=== PATIENT | female | born 1995 | race Asian ===

== ENCOUNTER 2018-08-24 13:05 | Emergency (ER) | payer OTHER ==
[~2018-08-24] VITALS: Ht 157.5 cm; Wt 54.0 kg
--- NOTE | 2018-08-24 13:25 | PHYS DOC ---
Adult General Chief Complaint Chief Complaint: DIZZY/LIGHT HEADED HPI HPI Patient is a 22 year old female 1 para 0 currently 4 weeks who presents to the ED today complaining of an episode of dizziness with vomiting that occurred today. Patient states the dizziness occurred while changing positions from sitting to standing. Patient denies any headache. Denies any abdominal pain. Denies any fever. Denies any vaginal bleeding. She is requesting we do not do an ultrasound in the ED because it's very expensive. Review of Systems Review of Systems Constitutional: Denies fever or chills [] Eyes: Denies change in visual acuity, redness, or eye pain [] HENT: Denies nasal congestion or sore throat [] Respiratory: Denies cough or shortness of breath [] Cardiovascular: No additional information not addressed in HPI [] GI: Reports nausea and vomiting. Denies abdominal pain, denies any diarrhea. Musculoskeletal: Denies back pain or joint pain [] Integument: Denies rash or skin lesions [] Neurologic: Reports dizziness. Denies headache, focal weakness or sensory changes [] [] All other systems were reviewed and found to be within normal limits, except as documented in this note. Current Medications Current Medications Current Medications Medications (Trade) Dose Ordered Sig/Pattie Start Time Stop Time Status Last Admin Dose Admin Ondansetron HCl (Zofran) 4 mg 1X ONCE 08/24/18 13:45 08/24/18 13:46 DC 08/24/18 13:45 4 MG Sodium Chloride 1,000 ml @ 1,000 mls/hr 1X ONCE 08/24/18 13:45 08/24/18 14:44 08/24/18 13:45 1,000 MLS/HR Allergies Allergies Allergies Coded Allergies Type Severity Reaction Last Updated Verified No Known Drug Allergies 08/24/18 No Physical Exam Physical Exam Constitutional: Well developed, well nourished, no acute distress, non-toxic appearance. [] HENT: Normocephalic, atraumatic, bilateral external ears normal, oropharynx moist, no oral exudates, nose normal. [] Eyes: PERRLA, EOMI, conjunctiva normal, no discharge. [] Neck: Normal range of motion, no tenderness, supple, no stridor. [] Cardiovascular:Heart rate regular rhythm, no murmur [] Lungs & Thorax: Bilateral breath sounds clear to auscultation [] Abdomen: Bowel sounds normal, soft, no tenderness, no masses, no pulsatile masses. [] Skin: Warm, dry, no erythema, no rash. [] Back: No tenderness, no CVA tenderness. [] Extremities: No tenderness, no cyanosis, no clubbing, ROM intact, no edema. [] Neurologic: Alert and oriented X 3, normal motor function, normal sensory function, no focal deficits noted. Cranial nerves II through XII intact Psychologic: Affect normal, judgement normal, mood normal. [] Current Patient Data Vital Signs Vital Signs Date Time Temp Pulse Resp B/P (MAP) Pulse Ox O2 Delivery O2 Flow Rate FiO2 08/24/18 13:15 98.0 79 16 113/67 (82) 100 Room Air 98.0 Lab Values Laboratory Tests Test 08/24/18 13:12 08/24/18 13:19 08/24/18 13:40 Urine Collection Type Void Urine Color Yellow Urine Clarity Clear Urine pH 6.5 Urine Specific [place] 1.020 Urine Protein Negative mg/dL (NEG-TRACE) Urine Glucose (UA) Negative mg/dL (NEG) Urine Ketones (Stick) 40 mg/dL (NEG) Urine Blood Negative (NEG) Urine Nitrite Negative (NEG) Urine Bilirubin Negative (NEG) Urine Urobilinogen Dipstick 0.2 mg/dL (0.2 mg/dL) Urine Leukocyte Esterase Large (NEG) Urine RBC 0 /HPF (0-2) Urine WBC 20-40 /HPF (0-4) Urine Squamous Epithelial Cells Many /LPF Urine Bacteria Few /HPF (0-FEW) Urine Mucus Mod /LPF POC Urine HCG, Qualitative Hcg positive (Negative) White Blood Count 9.8 x10^3/uL (4.0-11.0) Red Blood Count 4.06 x10^6/uL (3.50-5.40) Hemoglobin 8.2 g/dL (12.0-15.5) L Hematocrit 26.3 % (36.0-47.0) L Mean Corpuscular Volume 65 fL (79-100) L Mean Corpuscular Hemoglobin 20 pg (25-35) L Mean Corpuscular Hemoglobin Concent 31 g/dL (31-37) Red Cell Distribution Width 18.5 % (11.5-14.5) H Platelet Count 287 x10^3/uL (140-400) Neutrophils (%) (Auto) 80 % (31-73) H Lymphocytes (%) (Auto) 15 % (24-48) L Monocytes (%) (Auto) 4 % (0-9) Eosinophils (%) (Auto) 1 % (0-3) Basophils (%) (Auto) 0 % (0-3) Neutrophils # (Auto) 7.9 x10^3uL (1.8-7.7) H Lymphocytes # (Auto) 1.4 x10^3/uL (1.0-4.8) Monocytes # (Auto) 0.4 x10^3/uL (0.0-1.1) Eosinophils # (Auto) 0.1 x10^3/uL (0.0-0.7) Basophils # (Auto) 0.0 x10^3/uL (0.0-0.2) Platelet Estimate Adequate (ADEQUATE) Hypochromasia Mod Anisocytosis Mod Microcytosis Marked Target Cells Occ Schistocytes Occ Sodium Level 135 mmol/L (136-145) L Potassium Level 3.3 mmol/L (3.5-5.1) L Chloride Level 102 mmol/L (98-107) Carbon Dioxide Level 21 mmol/L (21-32) Anion Gap 12 (6-14) Blood Urea Nitrogen 6 mg/dL (7-20) L Creatinine 0.4 mg/dL (0.6-1.0) L Estimated GFR (Cockcroft-Gault) 201.5 BUN/Creatinine Ratio 15 (6-20) Glucose Level 78 mg/dL (70-99) Calcium Level 8.8 mg/dL (8.5-10.1) Total Bilirubin 0.4 mg/dL (0.2-1.0) Aspartate Amino Transferase (AST) 12 U/L (15-37) L Alanine Aminotransferase (ALT) 10 U/L (14-59) L Alkaline Phosphatase 47 U/L (46-116) Total Protein 7.9 g/dL (6.4-8.2) Albumin 3.5 g/dL (3.4-5.0) Albumin/Globulin Ratio 0.8 (1.0-1.7) L Laboratory Tests 08/24/18 13:40 Laboratory Tests 08/24/18 13:40 EKG EKG [] Radiology/Procedures Radiology/Procedures [] Course & Med Decision Making Course & Med Decision Making Pertinent Labs and Imaging studies reviewed. (See chart for details) This is a 22-year-old female patient presenting to the ED today complaining of dizziness and that episode of vomiting. She is currently 4 months . She is a 1 para 0. She is refusing ultrasound on her baby, she states it's very expensive. CBC with a normal WBC, hemoglobin 8.2, hematocrit 26.3, patient was advised to increase dietary iron intake, vitamins recommended. Urine analysis is noted for large amount of leukocytes, patient was discharged on cephalexin. Vitals are stable, orthostatics are negative. CMP with potassium of 3.3, patient was given oral potassium replacement. She was also given a liter of fluid and Zofran. She states she is feeling better. She was discharged to home. Encouraged to push fluids and change positions slowly. Follow-up with AUTHOR AGENT next week. Dragon Disclaimer Dragon Disclaimer This electronic medical record was generated, in whole or in part, using a voice recognition dictation system. Departure Departure Impression: Primary Impression: Additional Impressions: Dizziness Urinary tract infection during Anemia Disposition: HOME, SELF-CARE Condition: STABLE Referrals: CHRISTINE JORDAN Jr, MD follow up next week Patient Instructions: ABCs of , Anemia, FAQs, - Urinary Tract Infection Additional Instructions: You were evaluated for dizziness with vomiting. Your urine analysis was noted for infection, we put you on cephalexin, ensure you complete it. Your iron levels are low, please start taking vitamins, increase your dietary for iron intake through foods like red meats. Try and push fluids, change positions slowly, follow-up with your AUTHOR AGENT next week, come back to the ED at any point symptoms worsen. Scripts Ondansetron (ONDANSETRON ODT) 4 Mg Tab.rapdis 1 TAB PO PRN Q6-8HRS, #16 TAB Prov: MUTUNGA,MAYUR ENGINE LATHE SET UP OPERATOR TOOL 08/24/18 Cephalexin (CEPHALEXIN) 500 Mg Tablet 1 TAB PO BID, #14 TAB Prov: MUTUNGA,MAYUR ENGINE LATHE SET UP OPERATOR TOOL 08/24/18 Problem Qualifiers Primary Impression: Weeks of gestation: 16 weeks Qualified Codes: Z3A.16 - 16 weeks gestation of Additional Impressions: Urinary tract infection during Trimester: second trimester Qualified Codes: O23.42 - Unspecified infection of urinary tract in , second trimester Anemia Anemia type: unspecified type Qualified Codes: D64.9 - Anemia, unspecified MAYUR COVARRUBIAS ENGINE LATHE SET UP OPERATOR TOOL Aug 24, 2018 13:25
[2018-08-24] MEDS ORDERED: ONDANSETRON PF 4 MG/2 ML VIAL. IV ONE (13:45)
[2018-08-24] MEDS ORDERED: IV NORMAL SALINE 1000ML BAG 1,000 ML IV ONE (13:45)
[2018-08-24 13:49] LABS: BASO % 0 % (0-3); EOS # 0.1 x10^3/uL (0.0-0.7); EOS % 1 % (0-3); HEMATOCRIT 26.3 % (36.0-47.0); HEMOGLOBIN 8.2 g/dL (12.0-15.5); LYMPH # 1.4 x10^3/uL (1.0-4.8); LYMPH % 15 % (24-48); MEAN CORPUSCULAR HEMOGLOBIN 20 pg (25-35); MEAN CORPUSCULAR HGB CONC 31 g/dL (31-37); MEAN CORPUSCULAR VOLUME 65 fL (79-100); MONO # 0.4 x10^3/uL (0.0-1.1); MONO % 4 % (0-9); NEUT # 7.9 x10^3uL (1.8-7.7); NEUT % 80 % (31-73); PLATELET COUNT 287 x10^3/uL (140-400); RED BLOOD COUNT 4.06 x10^6/uL (3.50-5.40); RED CELL DISTRIBUTION WIDTH 18.5 % (11.5-14.5); WHITE BLOOD COUNT 9.8 x10^3/uL (4.0-11.0)
[2018-08-24 13:51] LABS: BILIRUBIN,URINE NEGATIVE (NEG); CLARITY,URINE CLEAR; COLOR,URINE YELLOW; NITRITE,URINE NEGATIVE (NEG); PH,URINE 6.5; PROTEIN,URINE NEGATIVE (NEG-TRACE); UROBILINOGEN,URINE 0.2 mg/dL (0.2 mg/dL)
[2018-08-24 13:56] LABS: CALCIUM 8.8 mg/dL (8.5-10.1); CREATININE 0.4 mg/dL (0.6-1.0); GFR 201.5; POTASSIUM 3.3 mmol/L (3.5-5.1)
[2018-08-24 14:02] LABS: ALBUMIN 3.5 g/dL (3.4-5.0); ALBUMIN/GLOBULIN RATIO 0.8 (1.0-1.7); TOTAL BILIRUBIN 0.4 mg/dL (0.2-1.0); TOTAL PROTEIN 7.9 g/dL (6.4-8.2)
[2018-08-24 14:10] LABS: BACTERIA,URINE FEW /HPF (0-FEW); RBC,URINE 0 /HPF (0-2); SQUAMOUS EPITHELIAL CELL,UR MANY /LPF; WBC,URINE 20-40 /HPF (0-4)
[2018-08-24 14:28] LABS: PLT ESTIMATE ADEQUATE (ADEQUATE)
[2018-08-24 14:29] LABS: ANISOCYTOSIS MOD; HYPOCHROMIA MOD; MICROCYTOSIS MARKED; TARGET CELLS OCC
[2018-08-24 14:30] LABS: SCHISTOCYTES OCC
[2018-08-24] MEDS ORDERED: ONDA4TAB12 PO (14:51)
[2018-08-24] MEDS ORDERED: CEPH500T PO (14:51)
[2018-08-24 15:00] VITALS: BP 93/53
[2018-08-24] MEDS ORDERED: POTASSIUM CHLORIDE 20 MEQ TABLET.ER. PO ONE (15:00)
== END 2018-08-24 15:00 | disposition home or self-care (01) ==
LOC: ER 13:05
DX: O99.012 Anemia complicating pregnancy, second trimester (principal); O23.32 Infections of other parts of urinary tract in pregnancy, second trimester; O21.8 Other vomiting complicating pregnancy; R42 Dizziness and giddiness; Z3A.16 16 weeks gestation of pregnancy
CPT/HCPCS: 36415; 80053; 81001; 81025; 85025; 87086; 96361; 96374; 99284; J2405; J7030

== ENCOUNTER 2018-09-06 16:46 | Emergency (ER) | payer OTHER ==
[~2018-09-06] VITALS: Ht 157.5 cm; Wt 55.8 kg
[~2018-09-06 16:46] MED LIST: CEPH500T PO; ONDA4TAB12 PO
[2018-09-06 17:10] LABS: BILIRUBIN,URINE NEGATIVE (NEG); CLARITY,URINE CLEAR; COLOR,URINE YELLOW; NITRITE,URINE NEGATIVE (NEG); PH,URINE 7.5; PROTEIN,URINE NEGATIVE (NEG-TRACE); UROBILINOGEN,URINE 0.2 mg/dL (0.2 mg/dL)
[2018-09-06 17:16] LABS: BACTERIA,URINE FEW /HPF (0-FEW); RBC,URINE RARE /HPF (0-2); SQUAMOUS EPITHELIAL CELL,UR MOD /LPF
[2018-09-06] MEDS ORDERED: cefTRIAXone IV Push 1 GM VIAL. IVP ONE (18:15)
[2018-09-06] MEDS ORDERED: IV NORMAL SALINE 1000ML BAG 1,000 ML IV ONE (18:30)
[2018-09-06 18:32] LABS: BASO % 0 % (0-3); EOS # 0.1 x10^3/uL (0.0-0.7); EOS % 1 % (0-3); HEMATOCRIT 23.5 % (36.0-47.0); HEMOGLOBIN 7.7 g/dL (12.0-15.5); LYMPH # 1.5 x10^3/uL (1.0-4.8); LYMPH % 16 % (24-48); MEAN CORPUSCULAR HEMOGLOBIN 22 pg (25-35); MEAN CORPUSCULAR HGB CONC 33 g/dL (31-37); MEAN CORPUSCULAR VOLUME 66 fL (79-100); MONO # 0.5 x10^3/uL (0.0-1.1); MONO % 5 % (0-9); NEUT # 6.9 x10^3uL (1.8-7.7); NEUT % 77 % (31-73); PLATELET COUNT 241 x10^3/uL (140-400); RED BLOOD COUNT 3.55 x10^6/uL (3.50-5.40); RED CELL DISTRIBUTION WIDTH 20.7 % (11.5-14.5)
[2018-09-06 18:39] LABS: CALCIUM 8.6 mg/dL (8.5-10.1); CREATININE 0.4 mg/dL (0.6-1.0); GFR 201.5; POTASSIUM 3.2 mmol/L (3.5-5.1)
[2018-09-06 18:44] LABS: ALBUMIN/GLOBULIN RATIO 0.8 (1.0-1.7); TOTAL BILIRUBIN 0.2 mg/dL (0.2-1.0); TOTAL PROTEIN 6.9 g/dL (6.4-8.2)
[2018-09-06 18:56] LABS: ANISOCYTOSIS MOD; HYPOCHROMIA MOD; MICROCYTOSIS MARKED; PLT ESTIMATE ADEQUATE (ADEQUATE); POLYCHROMASIA SLIGHT
--- NOTE | 2018-09-06 19:39 | RAD ---
Obstetrical ultrasound HISTORY: Abdominal and back pain. Flank pain. FINDINGS: Study interpreted without the benefit of real-time observation. A single intrauterine fetus is identified. Placenta is posterior and fundal. presentation is vertex. Amniotic fluid index is 9.8. movement is identified. Cardiac activity is documented with a heart rate of 132 bpm. Biparietal diameter, head circumference, abdominal circumference and femur length are measured, with an estimated sonographic age of 18 weeks 2 days and estimated due date of 02/05/2019. Estimated weight 0 lbs. 8 oz. +/- 1 ounce. Cervical length is 3.1 cm. IMPRESSION: 1. Single viable intrauterine with estimated age of 18 weeks 2 days. 2. The amniotic fluid index is within normal limits, although at the lower limits of normal. 3. Cervical length measures slightly short, 3.1 cm. Electronically signed by: Reno Sims MD (09/06/2018 7:36 PM) [facility]
[2018-09-06] MEDS ORDERED: CEPH-264 PO (19:46)
--- NOTE | 2018-09-06 19:47 | PHYS DOC ---
Past Medical History Past Medical History: No Pertinent History (BEE MORRISSEY) Past Surgical History: Appendectomy (BEE MORRISSEY) Alcohol Use: None Drug Use: None (BEE MORRISSEY) Adult General Chief Complaint Chief Complaint: FLANK PAIN HPI HPI Patient is a 22 year old F who speaks Bermese and her family in room is translating. They were offered the freelance translator phone and declined. Pt is here for flank pain and low abd cramps in . She was actually seen by her OB, Dr. Washington, yesterday. She states 2 d ago she had some vaginal spotting so was seen yesterday and underwent a pelvic exam. She had more cramping and some pain in her B sides today so came in to ER for evaluation. She denies N/V/D. This is pt's first . (BEE MORRISSEY) Review of Systems Review of Systems Constitutional: Denies fever or chills [] Respiratory: Denies cough or shortness of breath [] Cardiovascular: Denies chest pain GI: Denies nausea, vomiting, bloody stools or diarrhea. Reports abd cramping. : Denies dysuria or hematuria. Reports vaginal bleeding 2 d ago but none since . Musculoskeletal: Denies back pain or joint pain [] Integument: Denies rash or skin lesions [] Neurologic: Denies headache, focal weakness or sensory changes [] All other systems were reviewed and found to be within normal limits, except as documented in this note. (BEE MORRISSEY) Current Medications Current Medications Current Medications Medications (Trade) Dose Ordered Sig/Pattie Start Time Stop Time Status Last Admin Dose Admin Ceftriaxone Sodium (Rocephin) 1 gm 1X ONCE 09/06/18 18:15 09/06/18 18:16 DC 09/06/18 18:23 1 GM Sodium Chloride 1,000 ml @ 1,000 mls/hr 1X ONCE 09/06/18 18:30 09/06/18 19:29 DC 09/06/18 18:24 1,000 MLS/HR (LISBETH JOHNSON MD) Allergies Allergies Allergies Coded Allergies Type Severity Reaction Last Updated Verified No Known Drug Allergies 08/24/18 No (LISBETH JOHNSON MD) Physical Exam Physical Exam Constitutional: Well developed, well nourished, no acute distress, non-toxic appearance. [] Neck: Normal range of motion, no tenderness, supple, no stridor. [] Cardiovascular:Heart rate regular rhythm, no murmur [] Lungs & Thorax: Bilateral breath sounds clear to auscultation [] Abdomen: Bowel sounds normal, soft, no tenderness on palpation. Skin: Warm, dry, no erythema, no rash. [] Back: No tenderness, no CVA tenderness. [] Extremities: No tenderness, no cyanosis, no clubbing, ROM intact, no edema. [] Neurologic: Alert and oriented X 3, normal motor function, normal sensory function, no focal deficits noted. [] Psychologic: Affect normal, judgement normal, mood normal. [] : pelvic exam declined due to pt having one at OB office yesterday (BEE MORRISSEY) Current Patient Data Vital Signs Vital Signs Date Time Temp Pulse Resp B/P (MAP) Pulse Ox O2 Delivery O2 Flow Rate FiO2 09/06/18 19:52 79 15 102/71 (81) 97 Room Air 09/06/18 16:53 99.2 99.2 (LISBETH JOHNSON MD) Lab Values Laboratory Tests Test 09/06/18 16:55 09/06/18 18:05 Urine Collection Type Void Urine Color Yellow Urine Clarity Clear Urine pH 7.5 Urine Specific [place] <=1.005 Urine Protein Negative mg/dL (NEG-TRACE) Urine Glucose (UA) Negative mg/dL (NEG) Urine Ketones (Stick) Negative mg/dL (NEG) Urine Blood Small (NEG) Urine Nitrite Negative (NEG) Urine Bilirubin Negative (NEG) Urine Urobilinogen Dipstick 0.2 mg/dL (0.2 mg/dL) Urine Leukocyte Esterase Moderate (NEG) Urine RBC Rare /HPF (0-2) Urine WBC 1-4 /HPF (0-4) Urine Squamous Epithelial Cells Mod /LPF Urine Bacteria Few /HPF (0-FEW) White Blood Count 9.0 x10^3/uL (4.0-11.0) Red Blood Count 3.55 x10^6/uL (3.50-5.40) Hemoglobin 7.7 g/dL (12.0-15.5) L Hematocrit 23.5 % (36.0-47.0) L Mean Corpuscular Volume 66 fL (79-100) L Mean Corpuscular Hemoglobin 22 pg (25-35) L Mean Corpuscular Hemoglobin Concent 33 g/dL (31-37) Red Cell Distribution Width 20.7 % (11.5-14.5) H Platelet Count 241 x10^3/uL (140-400) Neutrophils (%) (Auto) 77 % (31-73) H Lymphocytes (%) (Auto) 16 % (24-48) L Monocytes (%) (Auto) 5 % (0-9) Eosinophils (%) (Auto) 1 % (0-3) Basophils (%) (Auto) 0 % (0-3) Neutrophils # (Auto) 6.9 x10^3uL (1.8-7.7) Lymphocytes # (Auto) 1.5 x10^3/uL (1.0-4.8) Monocytes # (Auto) 0.5 x10^3/uL (0.0-1.1) Eosinophils # (Auto) 0.1 x10^3/uL (0.0-0.7) Basophils # (Auto) 0.0 x10^3/uL (0.0-0.2) Platelet Estimate Adequate (ADEQUATE) Polychromasia Slight Hypochromasia Mod Anisocytosis Mod Microcytosis Marked Maternal Serum HCG Beta Subunit 6468 mIU/mL (0-5) H Sodium Level 141 mmol/L (136-145) Potassium Level 3.2 mmol/L (3.5-5.1) L Chloride Level 106 mmol/L (98-107) Carbon Dioxide Level 25 mmol/L (21-32) Anion Gap 10 (6-14) Blood Urea Nitrogen 4 mg/dL (7-20) L Creatinine 0.4 mg/dL (0.6-1.0) L Estimated GFR (Cockcroft-Gault) 201.5 BUN/Creatinine Ratio 10 (6-20) Glucose Level 93 mg/dL (70-99) Calcium Level 8.6 mg/dL (8.5-10.1) Total Bilirubin 0.2 mg/dL (0.2-1.0) Aspartate Amino Transferase (AST) 14 U/L (15-37) L Alanine Aminotransferase (ALT) 13 U/L (14-59) L Alkaline Phosphatase 49 U/L (46-116) Total Protein 6.9 g/dL (6.4-8.2) Albumin 3.0 g/dL (3.4-5.0) L Albumin/Globulin Ratio 0.8 (1.0-1.7) L Laboratory Tests 09/06/18 18:05 Laboratory Tests 09/06/18 18:05 Microbiology 09/06/18 Urine Culture - Preliminary, Resulted 09/06/18 Urine Culture Result 1 (OLIVIA) - Preliminary, Resulted (LISBETH JOHNSON MD) EKG EKG [] (BEE MORRISSEY) Radiology/Procedures Radiology/Procedures ultrasound performed and reassuring (BEE MORRISSEY) Course & Med Decision Making Course & Med Decision Making Pertinent Labs and Imaging studies reviewed. (See chart for details) Pt significantly anemic. In review pt had Hgb of 8.2 on prior labs. I discussed this with pt and she states she does have hx of iron deficiency anemia and is supposed to be taking iron supplements but ran out. I encouraged her to restart these and discussed that she needs close lab recheck with Dr. Washington. Pt has UTI and was given Rocephin and will be started on Keflex. Pt stable at time of discharge. She is hungry and appears in no distress. (BEE MORRISSEY) Course & Med Decision Making Staff Physician Addendum: I was working in the ER during the course of this patient's visit. I was available for consultation as needed, but I was not directly involved in the care of this patient. (LISBETH JOHNSON MD) Dragon Disclaimer Dragon Disclaimer This electronic medical record was generated, in whole or in part, using a voice recognition dictation system. (BEE MORRISSEY) Departure Departure Impression: Primary Impression: Anemia Additional Impression: Urinary tract infection during Disposition: HOME, SELF-CARE Condition: IMPROVED Referrals: NO PCP (PCP) DREW WASHINGTON MD Patient Instructions: Anemia, Nonspecific-Brief, - Urinary Tract Infection Additional Instructions: It is not uncommon to get urinary tracts during . Push fluids, rest and follow up closely with your staff development educator. You are anemic, which appears around baseline from your prior visit, but could certainly be contributing to you feeling tired and dizzy. Please continue to take iron supplements and/or vitamins. Scripts Cephalexin (KEFLEX) 500 Mg Capsule 1 CAP PO TID, #21 CAP Prov: BEE MORRISSEY 09/06/18 Problem Qualifiers BEE MORRISSEY September 06, 2018 19:47 LISBETH JOHNSON MD September 09, 2018 04:58
[2018-09-06 19:52] VITALS: BP 102/71
== END 2018-09-06 20:18 | disposition home or self-care (01) ==
LOC: ER 16:46
DX: O23.42 Unspecified infection of urinary tract in pregnancy, second trimester (principal); O99.012 Anemia complicating pregnancy, second trimester; D64.9 Anemia, unspecified; Z90.89 Acquired absence of other organs; Z3A.18 18 weeks gestation of pregnancy
CPT/HCPCS: 36415; 76805; 80053; 81001; 84702; 85025; 87086; 96374; 99285; J0696; J7030; 87186

== ENCOUNTER 2018-10-03 17:48 | Emergency (ER) | payer OTHER ==
[~2018-10-03] VITALS: Ht 157.5 cm; Wt 63.5 kg
[~2018-10-03 17:48] MED LIST changes: +CEPH-264 PO
[2018-10-03 18:32] LABS: BASO % 0 % (0-3); EOS # 0.1 x10^3/uL (0.0-0.7); EOS % 1 % (0-3); HEMATOCRIT 27.2 % (36.0-47.0); HEMOGLOBIN 8.8 g/dL (12.0-15.5); LYMPH # 1.9 x10^3/uL (1.0-4.8); LYMPH % 20 % (24-48); MEAN CORPUSCULAR HEMOGLOBIN 23 pg (25-35); MEAN CORPUSCULAR HGB CONC 32 g/dL (31-37); MEAN CORPUSCULAR VOLUME 71 fL (79-100); MONO # 0.5 x10^3/uL (0.0-1.1); MONO % 6 % (0-9); NEUT % 73 % (31-73); PLATELET COUNT 245 x10^3/uL (140-400); RED BLOOD COUNT 3.82 x10^6/uL (3.50-5.40); RED CELL DISTRIBUTION WIDTH 23.8 % (11.5-14.5); WHITE BLOOD COUNT 9.7 x10^3/uL (4.0-11.0)
[2018-10-03 18:33] LABS: BILIRUBIN,URINE NEGATIVE (NEG); CLARITY,URINE CLEAR; COLOR,URINE YELLOW; NITRITE,URINE NEGATIVE (NEG); PH,URINE 7.5; PROTEIN,URINE NEGATIVE (NEG-TRACE); UROBILINOGEN,URINE 0.2 mg/dL (0.2 mg/dL)
[2018-10-03 18:41] LABS: BACTERIA,URINE 0 /HPF (0-FEW); RBC,URINE 0 /HPF (0-2); SQUAMOUS EPITHELIAL CELL,UR MANY /LPF; WBC,URINE 0 /HPF (0-4)
[2018-10-03 18:44] LABS: CALCIUM 8.6 mg/dL (8.5-10.1); CREATININE 0.3 mg/dL (0.6-1.0); GFR 280.8; POTASSIUM 3.7 mmol/L (3.5-5.1)
--- NOTE | 2018-10-03 18:44 | PHYS DOC ---
Past Medical History Past Medical History: No Pertinent History (DELON AMAYA APRN) Past Surgical History: Appendectomy (DELON AMAYA APRN) Alcohol Use: None Drug Use: None (DELON AMAYA APRN) Adult General Chief Complaint Chief Complaint: MULTIPLE COMPLAINTS [facility] HPI Patient is a 22 year old female who presents with multiple complaints. Patient reports she has had a cough for the past 3-4 days. Reports nonproductive cough. Reports lower back pain for the past month. She is unsure if she has had any urinary changes, she does not pay attention. Reports she is 20 weeks , denies vaginal bleeding, denies vaginal discharge. Denies fevers, denies shortness of air, does report she does have some chest discomfort when she is coughing. Reports her chest about an abdominal discomfort is transient and only stays when she is coughing and goes away when she is not coughing. States she has not taken any medications for her cough and she does not know what to take. Reports is her first . (DELON AMAYA APRN) Review of Systems Review of Systems Constitutional: Denies fever or chills [] Eyes: Denies change in visual acuity, redness, or eye pain [] HENT: Denies nasal congestion or sore throat [] Respiratory: Reports cough denies shortness of breath [] Cardiovascular: No additional information not addressed in HPI [] GI: Denies abdominal pain other than while coughing, denies nausea, vomiting, bloody stools or diarrhea [] : Denies dysuria or hematuria [] Musculoskeletal: Reports lower back pain or joint pain [] Integument: Denies rash or skin lesions [] Neurologic: Denies headache, focal weakness or sensory changes [] Endocrine: Denies polyuria or polydipsia [] All other systems were reviewed and found to be within normal limits, except as documented in this note. (DELON AMAYA APRN) Allergies Allergies Allergies Coded Allergies Type Severity Reaction Last Updated Verified No Known Drug Allergies 08/24/18 No (MIKE GUAJARDO DO) Physical Exam Physical Exam Constitutional: Well developed, well nourished, no acute distress, non-toxic appearance. [] HENT: Normocephalic, atraumatic, bilateral external ears normal, oropharynx moist, no oral exudates, nose normal. [] Eyes: PERRLA, EOMI, conjunctiva normal, no discharge. [] Neck: Normal range of motion, no tenderness, supple, no stridor. [] Cardiovascular:Heart rate regular rhythm, no murmur [] Lungs & Thorax: Bilateral breath sounds clear to auscultation [] Abdomen: Bowel sounds normal, soft, no tenderness, no masses, no pulsatile masses. [] Skin: Warm, dry, no erythema, no rash. [] Back: No tenderness, no CVA tenderness. [] Extremities: No tenderness, no cyanosis, no clubbing, ROM intact, no edema. [] Neurologic: Alert and oriented X 3, normal motor function, normal sensory function, no focal deficits noted. [] Psychologic: Affect normal, judgement normal, mood normal. [] (DELON AMAYA APRN) Current Patient Data Vital Signs Vital Signs Date Time Temp Pulse Resp B/P (MAP) Pulse Ox O2 Delivery O2 Flow Rate FiO2 10/03/18 20:00 70 19 98/62 (74) 99 Room Air 10/03/18 18:22 98.6 98.6 (GUAJARDOMIKE GONSALEZ DO) Lab Values Laboratory Tests Test 10/03/18 17:58 10/03/18 18:16 Urine Collection Type Unknown Urine Color Yellow Urine Clarity Clear Urine pH 7.5 Urine Specific [place] 1.015 Urine Protein Negative mg/dL (NEG-TRACE) Urine Glucose (UA) Negative mg/dL (NEG) Urine Ketones (Stick) Negative mg/dL (NEG) Urine Blood Negative (NEG) Urine Nitrite Negative (NEG) Urine Bilirubin Negative (NEG) Urine Urobilinogen Dipstick 0.2 mg/dL (0.2 mg/dL) Urine Leukocyte Esterase Negative (NEG) Urine RBC 0 /HPF (0-2) Urine WBC 0 /HPF (0-4) Urine Squamous Epithelial Cells Many /LPF Urine Bacteria 0 /HPF (0-FEW) Urine Mucus Mod /LPF White Blood Count 9.7 x10^3/uL (4.0-11.0) Red Blood Count 3.82 x10^6/uL (3.50-5.40) Hemoglobin 8.8 g/dL (12.0-15.5) L Hematocrit 27.2 % (36.0-47.0) L Mean Corpuscular Volume 71 fL (79-100) L Mean Corpuscular Hemoglobin 23 pg (25-35) L Mean Corpuscular Hemoglobin Concent 32 g/dL (31-37) Red Cell Distribution Width 23.8 % (11.5-14.5) H Platelet Count 245 x10^3/uL (140-400) Neutrophils (%) (Auto) 73 % (31-73) Lymphocytes (%) (Auto) 20 % (24-48) L Monocytes (%) (Auto) 6 % (0-9) Eosinophils (%) (Auto) 1 % (0-3) Basophils (%) (Auto) 0 % (0-3) Neutrophils # (Auto) 7.0 x10^3uL (1.8-7.7) Lymphocytes # (Auto) 1.9 x10^3/uL (1.0-4.8) Monocytes # (Auto) 0.5 x10^3/uL (0.0-1.1) Eosinophils # (Auto) 0.1 x10^3/uL (0.0-0.7) Basophils # (Auto) 0.0 x10^3/uL (0.0-0.2) Platelet Estimate Adequate (ADEQUATE) Hypochromasia Mod Poikilocytosis Slight Anisocytosis Mod Microcytosis Mod Ovalocytes Occ Sodium Level 139 mmol/L (136-145) Potassium Level 3.7 mmol/L (3.5-5.1) Chloride Level 105 mmol/L (98-107) Carbon Dioxide Level 24 mmol/L (21-32) Anion Gap 10 (6-14) Blood Urea Nitrogen 5 mg/dL (7-20) L Creatinine 0.3 mg/dL (0.6-1.0) L Estimated GFR (Cockcroft-Gault) 280.8 BUN/Creatinine Ratio 17 (6-20) Glucose Level 92 mg/dL (70-99) Calcium Level 8.6 mg/dL (8.5-10.1) Total Bilirubin 0.2 mg/dL (0.2-1.0) Aspartate Amino Transferase (AST) 15 U/L (15-37) Alanine Aminotransferase (ALT) 14 U/L (14-59) Alkaline Phosphatase 53 U/L (46-116) Troponin I Quantitative < 0.017 ng/mL (0.000-0.055) Total Protein 7.3 g/dL (6.4-8.2) Albumin 3.0 g/dL (3.4-5.0) L Albumin/Globulin Ratio 0.7 (1.0-1.7) L Laboratory Tests 10/03/18 18:16 Laboratory Tests 10/03/18 18:16 (MIKE GUAJARDO DO) EKG EKG no ST changes, no STEMI, NSR[] (DELON AMAYA APRN) Radiology/Procedures Radiology/Procedures [] (DELON AMAYA APRN) Course & Med Decision Making Course & Med Decision Making Pertinent Labs and Imaging studies reviewed. (See chart for details) [Discussed findings with patient, discussed symptoms consistent with viral URI, advised and and inability to perform x-ray due to , patient understands this, discussed normal urine results. Discussed with family taking cough medicine, Tylenol for her discomfort and follow-up with her primary care provider.] (DELON AMAYA APRN) Dragon Disclaimer Dragon Disclaimer This electronic medical record was generated, in whole or in part, using a voice recognition dictation system. (DELON AMAYA APRN) Departure Departure Impression: Primary Impression: Viral URI with cough Additional Impression: Cough Disposition: 01 HOME, SELF-CARE Condition: GOOD Referrals: NO PCP (PCP) Patient Instructions: Cough, Adult Additional Instructions: As we discussed, you can take Tylenol for your discomfort. You can take 1-2 of the "Extra Strength" (500 mg) tablets every 6 hours for discomfort. Make sure she is hydrated There is no sign of infection today in her blood or in her urine. With her being , she is limited on medications she can take for her cough. You can take over the counter cough drops to help with the cough. You could take some of the over the counter products containing Dextromethorphan and Guaifenasin - they will help with your cough but are not always the best in . You could take them per the directions on the box Attending Signature Attending Signature I have reviewed the PA/OFFICE CLINICIAN's note and plan of care. I was available for consultation as needed during the patient's visit in the emergency department. I agree with the clinical impression, plan, and disposition. (MIKE GUAJARDO DO) Problem Qualifiers DELON AMAYA APRN October 03, 2018 18:44 MIKE GUAJARDO DO Oct 08, 2018 06:40
[2018-10-03 18:50] LABS: ALBUMIN/GLOBULIN RATIO 0.7 (1.0-1.7); TOTAL BILIRUBIN 0.2 mg/dL (0.2-1.0); TOTAL PROTEIN 7.3 g/dL (6.4-8.2)
[2018-10-03 19:20] LABS: PLT ESTIMATE ADEQUATE (ADEQUATE)
[2018-10-03 19:21] LABS: ANISOCYTOSIS MOD; HYPOCHROMIA MOD; MICROCYTOSIS MOD; POIKILOCYTOSIS SLIGHT
[2018-10-03 19:22] LABS: OVALOCYTES OCC
[2018-10-03 20:00] VITALS: BP 98/62
--- NOTE | 2018-10-04 06:10 | EKG ---
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
== END 2018-10-03 20:26 | disposition home or self-care (01) ==
LOC: ER 17:48
DX: O99.512 Diseases of the respiratory system complicating pregnancy, second trimester (principal); J06.9 Acute upper respiratory infection, unspecified; B97.89 Other viral agents as the cause of diseases classified elsewhere; M54.5 Low back pain; Z90.89 Acquired absence of other organs; Z3A.20 20 weeks gestation of pregnancy
CPT/HCPCS: 36415; 80053; 81001; 84484; 85025; 93005; 99285-25

== ENCOUNTER 2018-12-04 10:33 | Observation (INO) | payer OTHER ==
[2018-12-04] MEDS ORDERED: IV RINGERS,LACTATED 1000ML 1,000 ML IV SCH (10:57)
[2018-12-04] MEDS ORDERED: ACETAMINOPHEN 325 MG TABLET. PO PRN (11:00)
[2018-12-04] MEDS ORDERED: ONDANSETRON PF 4 MG/2 ML VIAL. IV PRN (11:00)
[2018-12-04 11:15] LABS: BILIRUBIN,URINE NEGATIVE (NEG); CLARITY,URINE CLEAR; COLOR,URINE YELLOW; NITRITE,URINE NEGATIVE (NEG); PH,URINE 6.5; PROTEIN,URINE NEGATIVE (NEG-TRACE); UROBILINOGEN,URINE 0.2 mg/dL (0.2 mg/dL)
[2018-12-04 11:23] LABS: BACTERIA,URINE MODERATE /HPF (0-FEW); RBC,URINE 0 /HPF (0-2); SQUAMOUS EPITHELIAL CELL,UR MANY /LPF
[2018-12-04 11:27] LABS: AMPHETAMINE/METHAMPHETAMINE NEG (NEG); BARBITURATES NEG (NEG); BENZODIAZEPINES NEG (NEG); CANNABINOIDS NEG (NEG); COCAINE NEG (NEG); METHADONE NEG (NEG); OPIATES NEG (NEG); PHENCYCLIDINE NEG (NEG)
[2018-12-04 12:37] LABS: BASO % 0 % (0-3); EOS # 0.1 x10^3/uL (0.0-0.7); EOS % 1 % (0-3); HEMATOCRIT 23.2 % (36.0-47.0); HEMOGLOBIN 7.4 g/dL (12.0-15.5); LYMPH # 1.6 x10^3/uL (1.0-4.8); LYMPH % 15 % (24-48); MEAN CORPUSCULAR HEMOGLOBIN 22 pg (25-35); MEAN CORPUSCULAR HGB CONC 32 g/dL (31-37); MEAN CORPUSCULAR VOLUME 69 fL (79-100); MONO # 0.4 x10^3/uL (0.0-1.1); MONO % 4 % (0-9); NEUT # 8.6 x10^3/uL (1.8-7.7); NEUT % 80 % (31-73); PLATELET COUNT 241 x10^3/uL (140-400); RED BLOOD COUNT 3.38 x10^6/uL (3.50-5.40); RED CELL DISTRIBUTION WIDTH 17.5 % (11.5-14.5); WHITE BLOOD COUNT 10.7 x10^3/uL (4.0-11.0)
[2018-12-04 13:09] LABS: CALCIUM 8.3 mg/dL (8.5-10.1); CREATININE 0.4 mg/dL (0.6-1.0); GFR 199.6; POTASSIUM 3.3 mmol/L (3.5-5.1)
[2018-12-04 13:27] LABS: ALBUMIN 2.7 g/dL (3.4-5.0); ALBUMIN/GLOBULIN RATIO 0.6 (1.0-1.7); TOTAL BILIRUBIN 0.3 mg/dL (0.2-1.0)
[2018-12-04 13:45] LABS: ANISOCYTOSIS SLIGHT; HYPOCHROMIA MOD; MICROCYTOSIS MARKED; PLT ESTIMATE ADEQUATE (ADEQUATE); POLYCHROMASIA SLIGHT
[2018-12-04] MEDS ORDERED: IRON SUCROSE COMPLEX 200 MG in IV NORMAL SALINE 100ML 100 ML IV ONE (14:00)
== END 2018-12-04 16:45 | disposition home or self-care (01) ==
LOC: 3 SO LND 10:33
PROVIDERS: ADMIT Specialist; ATTEND Specialist
DX: O26.893 Other specified pregnancy related conditions, third trimester (principal); R51 Headache; R42 Dizziness and giddiness; R11.0 Nausea; R63.0 Anorexia; O99.89 Other specified diseases and conditions complicating pregnancy, childbirth and the puerperium; M54.9 Dorsalgia, unspecified; Z3A.30 30 weeks gestation of pregnancy
CPT/HCPCS: 36415; 80053; 80307; 81001; 82728; 83540; 83550; 84443; 85025; 87086; 96365; 96366; G0378; G0379; J1756; J7120

== ENCOUNTER 2018-12-09 15:11 | Observation (INO) | payer OTHER ==
[~2018-12-09] VITALS: Ht 154.9 cm; Wt 60.3 kg
[2018-12-09] MEDS ORDERED: IV RINGERS,LACTATED 1000ML 1,000 ML IV SCH (15:43)
[2018-12-09] MEDS ORDERED: IRON SUCROSE COMPLEX 200 MG in IV NORMAL SALINE 100ML 100 ML IV ONE (15:45)
[2018-12-09 15:59] LABS: BILIRUBIN,URINE NEGATIVE (NEG); CLARITY,URINE CLEAR; COLOR,URINE YELLOW; NITRITE,URINE NEGATIVE (NEG); PH,URINE 7.5; PROTEIN,URINE NEGATIVE (NEG-TRACE); UROBILINOGEN,URINE 0.2 mg/dL (0.2 mg/dL)
[2018-12-09 16:06] LABS: SQUAMOUS EPITHELIAL CELL,UR MOD /LPF
[2018-12-09 16:07] LABS: BACTERIA,URINE MANY /HPF (0-FEW); RBC,URINE 0 /HPF (0-2)
== END 2018-12-09 18:55 | disposition home or self-care (01) ==
LOC: 3 SO LND 15:11
PROVIDERS: ADMIT Specialist; ATTEND Specialist
DX: Z34.93 Encounter for supervision of normal pregnancy, unspecified, third trimester (principal); Z3A.31 31 weeks gestation of pregnancy
CPT/HCPCS: 81001; 87086; 96365; 96366; G0378; G0379; J1756; J7120; 59025

== ENCOUNTER 2019-02-07 16:49 | Emergency (ER) | payer OTHER ==
[~2019-02-07] VITALS: Ht 157.5 cm; Wt 58.5 kg
--- NOTE | 2019-02-07 17:38 | PHYS DOC ---
Past Medical History Past Medical History: No Pertinent History (MAYUR COVARRUBIAS APRN) Past Surgical History: Appendectomy (MAYUR COVARRUBIAS APRN) Alcohol Use: None Drug Use: None (MAYUR COVARRUBIAS APRN) Adult General Chief Complaint Chief Complaint: DIZZY/LIGHT HEADED HPI HPI Patient is a 23 year old female 1 para 1 who had a vaginal delivery last took on Sunday which is roughly a week ago with no complication who presents to the ED today with the interpreting for [place]. reports patient has been unable to sleep since they got home after being discharged from [facility]. Has been state patient has not been eating or drinking much. He states patient is also complaining of vaginal pain from episiotomy. Patient denies any fever, nausea, vomiting. She supposed she has pain medicine at home including medicine to help her sleep as well as ib uprofen which she will not take because she has to be awakened to take care of her baby. She reports she is awake all day and all night caring for the baby and is not able to sleep okay for herself. Patient denies any suicidal or homicidal ideations. reports patient is breast-feeding and yesterday they had to go [facility] because patient was having difficulty getting the baby to latch on her breast, they were given affect nipple which mother is using. Mother reports patient was left at home today because grandmother stepped in to help with the baby (MAYUR COVARRUBIAS APRN) Review of Systems Review of Systems Constitutional: Denies fever or chills [] Eyes: Denies change in visual acuity, redness, or eye pain [] HENT: Denies nasal congestion or sore throat [] Respiratory: Denies cough or shortness of breath [] Cardiovascular: No additional information not addressed in HPI [] GI: Denies abdominal pain, nausea, vomiting, bloody stools or diarrhea [] : Denies dysuria or hematuria [] Musculoskeletal: Denies back pain or joint pain [] Integument: Denies rash or skin lesions [] Neurologic: Denies headache, focal weakness or sensory changes [] Psych: Reports inability to sleep, eat, or drink much All other systems were reviewed and found to be within normal limits, except as documented in this note. (MAYUR COVARRUBIAS APRN) Allergies Allergies Allergies Coded Allergies Type Severity Reaction Last Updated Verified No Known Drug Allergies 08/24/18 No (LISBETH JOHNSON MD) Physical Exam Physical Exam Constitutional: Well developed, well nourished, no acute distress, non-toxic appearance. [] HENT: Normocephalic, atraumatic, bilateral external ears normal, oropharynx moist, no oral exudates, nose normal. [] Eyes: PERRLA, EOMI, conjunctiva normal, no discharge. [] Neck: Normal range of motion, no tenderness, supple, no stridor. [] Cardiovascular:Heart rate regular rhythm, no murmur [] Lungs & Thorax: Bilateral breath sounds clear to auscultation [] Abdomen: Bowel sounds normal, soft, no tenderness, no masses, no pulsatile masses. [] Skin: Warm, dry, no erythema, no rash. [] Back: No tenderness, no CVA tenderness. [] Extremities: No tenderness, no cyanosis, no clubbing, ROM intact, no edema. [] Neurologic: Alert and oriented X 3, normal motor function, normal sensory function, no focal deficits noted. Cranial nerves II through XII intact Psychologic: Depressed mood (MAYUR COVARRUBIAS APRN) Current Patient Data Vital Signs Vital Signs Date Time Temp Pulse Resp B/P (MAP) Pulse Ox O2 Delivery O2 Flow Rate FiO2 02/07/19 19:03 82 16 98 02/07/19 17:03 99.2 110/73 (85) Room Air 99.2 (LISBETH JOHNSON MD) Lab Values Laboratory Tests Test 02/07/19 17:00 02/07/19 17:42 Urine Collection Type Void Urine Color Yellow Urine Clarity Clear Urine pH 6.5 Urine Specific [place] 1.020 Urine Protein Negative mg/dL (NEG-TRACE) Urine Glucose (UA) Negative mg/dL (NEG) Urine Ketones (Stick) Negative mg/dL (NEG) Urine Blood Large (NEG) Urine Nitrite Negative (NEG) Urine Bilirubin Negative (NEG) Urine Urobilinogen Dipstick 1.0 mg/dL (0.2 mg/dL) Urine Leukocyte Esterase Moderate (NEG) Urine RBC 20-40 /HPF (0-2) Urine WBC 20-40 /HPF (0-4) Urine Squamous Epithelial Cells Mod /LPF Urine Bacteria Few /HPF (0-FEW) Urine Mucus Marked /LPF Urine Opiates Screen Neg (NEG) Urine Methadone Screen Neg (NEG) Urine Barbiturates Neg (NEG) Urine Phencyclidine Screen Neg (NEG) Urine Amphetamine/Methamphetamine Neg (NEG) Urine Benzodiazepines Screen Neg (NEG) Urine Cocaine Screen Neg (NEG) Urine Cannabinoids Screen Neg (NEG) Urine Ethyl Alcohol Neg (NEG) White Blood Count 8.4 x10^3/uL (4.0-11.0) Red Blood Count 4.06 x10^6/uL (3.50-5.40) Hemoglobin 11.5 g/dL (12.0-15.5) L Hematocrit 33.7 % (36.0-47.0) L Mean Corpuscular Volume 83 fL (79-100) Mean Corpuscular Hemoglobin 28 pg (25-35) Mean Corpuscular Hemoglobin Concent 34 g/dL (31-37) Red Cell Distribution Width 22.8 % (11.5-14.5) H Platelet Count 243 x10^3/uL (140-400) Neutrophils (%) (Auto) 72 % (31-73) Lymphocytes (%) (Auto) 19 % (24-48) L Monocytes (%) (Auto) 6 % (0-9) Eosinophils (%) (Auto) 3 % (0-3) Basophils (%) (Auto) 1 % (0-3) Neutrophils # (Auto) 6.1 x10^3/uL (1.8-7.7) Lymphocytes # (Auto) 1.6 x10^3/uL (1.0-4.8) Monocytes # (Auto) 0.5 x10^3/uL (0.0-1.1) Eosinophils # (Auto) 0.2 x10^3/uL (0.0-0.7) Basophils # (Auto) 0.1 x10^3/uL (0.0-0.2) Toxic Granulation Platelet Estimate Adequate (ADEQUATE) Polychromasia Slight Anisocytosis Mod Sodium Level 141 mmol/L (136-145) Potassium Level 4.0 mmol/L (3.5-5.1) Chloride Level 105 mmol/L (98-107) Carbon Dioxide Level 25 mmol/L (21-32) Anion Gap 11 (6-14) Blood Urea Nitrogen 11 mg/dL (7-20) Creatinine 0.4 mg/dL (0.6-1.0) L Estimated GFR (Cockcroft-Gault) 199.6 BUN/Creatinine Ratio 28 (6-20) H Glucose Level 86 mg/dL (70-99) Calcium Level 9.1 mg/dL (8.5-10.1) Total Bilirubin 0.3 mg/dL (0.2-1.0) Aspartate Amino Transferase (AST) 20 U/L (15-37) Alanine Aminotransferase (ALT) 18 U/L (14-59) Alkaline Phosphatase 102 U/L (46-116) Total Protein 7.5 g/dL (6.4-8.2) Albumin 2.9 g/dL (3.4-5.0) L Albumin/Globulin Ratio 0.6 (1.0-1.7) L Ethyl Alcohol Level < 10 mg/dL (0-10) Laboratory Tests 02/07/19 17:42 Laboratory Tests 02/07/19 17:42 (LISBETH JOHNSON MD) Lab Values Laboratory Tests Test 02/07/19 17:00 02/07/19 17:42 Urine Collection Type Void Urine Color Yellow Urine Clarity Clear Urine pH 6.5 Urine Specific [place] 1.020 Urine Protein Negative mg/dL (NEG-TRACE) Urine Glucose (UA) Negative mg/dL (NEG) Urine Ketones (Stick) Negative mg/dL (NEG) Urine Blood Large (NEG) Urine Nitrite Negative (NEG) Urine Bilirubin Negative (NEG) Urine Urobilinogen Dipstick 1.0 mg/dL (0.2 mg/dL) Urine Leukocyte Esterase Moderate (NEG) Urine RBC 20-40 /HPF (0-2) Urine WBC 20-40 /HPF (0-4) Urine Squamous Epithelial Cells Mod /LPF Urine Bacteria Few /HPF (0-FEW) Urine Mucus Marked /LPF Urine Opiates Screen Neg (NEG) Urine Methadone Screen Neg (NEG) Urine Barbiturates Neg (NEG) Urine Phencyclidine Screen Neg (NEG) Urine Amphetamine/Methamphetamine Neg (NEG) Urine Benzodiazepines Screen Neg (NEG) Urine Cocaine Screen Neg (NEG) Urine Cannabinoids Screen Neg (NEG) Urine Ethyl Alcohol Neg (NEG) White Blood Count 8.4 x10^3/uL (4.0-11.0) Red Blood Count 4.06 x10^6/uL (3.50-5.40) Hemoglobin 11.5 g/dL (12.0-15.5) L Hematocrit 33.7 % (36.0-47.0) L Mean Corpuscular Volume 83 fL (79-100) Mean Corpuscular Hemoglobin 28 pg (25-35) Mean Corpuscular Hemoglobin Concent 34 g/dL (31-37) Red Cell Distribution Width 22.8 % (11.5-14.5) H Platelet Count 243 x10^3/uL (140-400) Neutrophils (%) (Auto) 72 % (31-73) Lymphocytes (%) (Auto) 19 % (24-48) L Monocytes (%) (Auto) 6 % (0-9) Eosinophils (%) (Auto) 3 % (0-3) Basophils (%) (Auto) 1 % (0-3) Neutrophils # (Auto) 6.1 x10^3/uL (1.8-7.7) Lymphocytes # (Auto) 1.6 x10^3/uL (1.0-4.8) Monocytes # (Auto) 0.5 x10^3/uL (0.0-1.1) Eosinophils # (Auto) 0.2 x10^3/uL (0.0-0.7) Basophils # (Auto) 0.1 x10^3/uL (0.0-0.2) Toxic Granulation Platelet Estimate Adequate (ADEQUATE) Polychromasia Slight Anisocytosis Mod Sodium Level 141 mmol/L (136-145) Potassium Level 4.0 mmol/L (3.5-5.1) Chloride Level 105 mmol/L (98-107) Carbon Dioxide Level 25 mmol/L (21-32) Anion Gap 11 (6-14) Blood Urea Nitrogen 11 mg/dL (7-20) Creatinine 0.4 mg/dL (0.6-1.0) L Estimated GFR (Cockcroft-Gault) 199.6 BUN/Creatinine Ratio 28 (6-20) H Glucose Level 86 mg/dL (70-99) Calcium Level 9.1 mg/dL (8.5-10.1) Total Bilirubin 0.3 mg/dL (0.2-1.0) Aspartate Amino Transferase (AST) 20 U/L (15-37) Alanine Aminotransferase (ALT) 18 U/L (14-59) Alkaline Phosphatase 102 U/L (46-116) Total Protein 7.5 g/dL (6.4-8.2) Albumin 2.9 g/dL (3.4-5.0) L Albumin/Globulin Ratio 0.6 (1.0-1.7) L Ethyl Alcohol Level < 10 mg/dL (0-10) Laboratory Tests 02/07/19 17:42 Laboratory Tests 02/07/19 17:42 (MAYUR COVARRUBIAS APRN) EKG EKG [] (MAYUR COVARRUBIAS APRN) Radiology/Procedures Radiology/Procedures [] (MAYUR COVARRUBIAS APRN) Course & Med Decision Making Course & Med Decision Making Pertinent Labs and Imaging studies reviewed. (See chart for details) This is a 23-year-old female patient 1 para 1 who had a vaginal delivery approximately a week ago presenting to the ED today with what appears to be signs and symptoms of depression. Patient is apparently not eating drinking or sleeping since the baby went home with her. They state she spent most of her time taking care of the baby. She appears depressed, denies any suicidal or homicidal ideations. Reyna from the PAT team in the Ed talking to patient CBC with normal WBC, hemoglobin 11.5, hematocrit 33.7, CMP with no acute findings, urine analysis is noted for UTI. Patient to be discharged and cephalexin. Patient is to follow-up with her own PCP as well as resources provided by PAT team (MAYUR COVARRUBIAS APRN) Course & Med Decision Making Staff Physician Addendum: I was working in the ER during the course of this patient's visit. I was available for consultation as needed, but I was not directly involved in the care of this patient. (LISBETH JOHNSON MD) Dragon Disclaimer Dragon Disclaimer This electronic medical record was generated, in whole or in part, using a voice recognition dictation system. (MAYUR COVARRUBIAS APRN) Departure Departure Impression: Primary Impression: depression Additional Impression: UTI (urinary tract infection) Disposition: 01 HOME, SELF-CARE Condition: STABLE Referrals: NO PCP (PCP) follow up with your doctor next week Patient Instructions: Care After Vaginal Delivery, Depression and Baby Blues, Urinary Tract Infection Additional Instructions: -Please follow-up with the resources provided by PAT team -Please complete the prescribed antibiotics for UTI -Please consider asking her family members to help you with the baby, this will allow you to have some time to sleep and rest and take care of herself as well -Please take the prescribed pain medicine as needed for pain Scripts Docusate Sodium (COLACE) 100 Mg Capsule 1 CAP PO BID, #20 CAP Prov: MAYUR COVARRUBIAS APRN 02/07/19 Hydrocodone/Apap 5-325 (NORCO 5-325 TABLET) 1 Each Tablet 1 TAB PO Q6HRS, #12 TAB Prov: MAYUR COVARRUBIAS APRN 02/07/19 Cephalexin (CEPHALEXIN) 500 Mg Tablet 1 TAB PO BID, #14 TAB Prov: MAYUR COVARRUBIAS APRN 02/07/19 Problem Qualifiers Additional Impression: UTI (urinary tract infection) Urinary tract infection type: site unspecified Hematuria presence: without hematuria Qualified Codes: N39.0 - Urinary tract infection, site not speci MAYUR Resendiz APRN Feb 07, 2019 17:38 LISBETH JOHNSON MD Feb 07, 2019 20:56
[2019-02-07 17:42] LABS: BILIRUBIN,URINE NEGATIVE (NEG); CLARITY,URINE CLEAR; COLOR,URINE YELLOW; NITRITE,URINE NEGATIVE (NEG); PH,URINE 6.5; PROTEIN,URINE NEGATIVE (NEG-TRACE)
[2019-02-07 17:47] LABS: BARBITURATES NEG (NEG); BENZODIAZEPINES NEG (NEG); CANNABINOIDS NEG (NEG); COCAINE NEG (NEG); METHADONE NEG (NEG); OPIATES NEG (NEG); PHENCYCLIDINE NEG (NEG)
[2019-02-07 17:49] LABS: BASO # 0.1 x10^3/uL (0.0-0.2); BASO % 1 % (0-3); EOS # 0.2 x10^3/uL (0.0-0.7); EOS % 3 % (0-3); HEMATOCRIT 33.7 % (36.0-47.0); HEMOGLOBIN 11.5 g/dL (12.0-15.5); LYMPH # 1.6 x10^3/uL (1.0-4.8); LYMPH % 19 % (24-48); MEAN CORPUSCULAR HEMOGLOBIN 28 pg (25-35); MEAN CORPUSCULAR HGB CONC 34 g/dL (31-37); MEAN CORPUSCULAR VOLUME 83 fL (79-100); MONO # 0.5 x10^3/uL (0.0-1.1); MONO % 6 % (0-9); NEUT # 6.1 x10^3/uL (1.8-7.7); NEUT % 72 % (31-73); PLATELET COUNT 243 x10^3/uL (140-400); RED BLOOD COUNT 4.06 x10^6/uL (3.50-5.40); RED CELL DISTRIBUTION WIDTH 22.8 % (11.5-14.5); WHITE BLOOD COUNT 8.4 x10^3/uL (4.0-11.0)
[2019-02-07 17:49] LABS: AMPHETAMINE/METHAMPHETAMINE NEG (NEG)
[2019-02-07 17:57] LABS: BACTERIA,URINE FEW /HPF (0-FEW); RBC,URINE 20-40 /HPF (0-2); SQUAMOUS EPITHELIAL CELL,UR MOD /LPF; WBC,URINE 20-40 /HPF (0-4)
[2019-02-07 17:57] LABS: CALCIUM 9.1 mg/dL (8.5-10.1); CREATININE 0.4 mg/dL (0.6-1.0); GFR 199.6
[2019-02-07 18:03] LABS: ALBUMIN 2.9 g/dL (3.4-5.0); ALBUMIN/GLOBULIN RATIO 0.6 (1.0-1.7); TOTAL BILIRUBIN 0.3 mg/dL (0.2-1.0); TOTAL PROTEIN 7.5 g/dL (6.4-8.2)
[2019-02-07 18:27] LABS: ANISOCYTOSIS MOD; PLT ESTIMATE ADEQUATE (ADEQUATE); POLYCHROMASIA SLIGHT
[2019-02-07] MEDS ORDERED: HYDR-3164 PO (18:38)
[2019-02-07] MEDS ORDERED: CEPH500T PO (18:38)
[2019-02-07] MEDS ORDERED: DOCU-109 PO (18:38)
[2019-02-07 19:03] VITALS: BP 109/73
== END 2019-02-07 19:25 | disposition home or self-care (01) ==
LOC: ER 16:49
DX: O99.345 Other mental disorders complicating the puerperium (principal); O86.20 Urinary tract infection following delivery, unspecified; G47.00 Insomnia, unspecified; Z90.89 Acquired absence of other organs
CPT/HCPCS: 36415; 80053; 80307; 81001; 85025; 87086; 99284; G0480